=== PATIENT | female | born 1985 | race Caucasian/White ===

== ENCOUNTER 2023-06-08 17:37 | Observation (INO) | payer OTHER ==
--- NOTE | 2023-06-08 17:43 | ERPHSYRPT ---
- History of Present Illness Time Seen by Provider: 06/08/23 17:43 Source: patient, family Exam Limitations: no limitations Physician History: This is a 38-year-old white female patient who presents to the emergency department secondary to a phone call from her primary care physician, Dr. Rodriguez's office. Patient has been feeling weak over the last 2 to 3 months. She has been having heavy menstrual periods but denies bleeding from any other orifice. She has no known bleeding or clotting disorders. She has no known bone marrow diseases. She used to take meloxicam but has been several months since she has been on that medication. Patient's hemoglobin drawn at 215 today was 4.4. Patient arrives to the emergency department with a systolic blood pressure in the 140s. Her heart rate is in the 130s and it is sinus tachycardia. Patient's room air oxygenation is 100% and her respiratory rate is 17. There is no active bleeding. She has no chest pain. She denies abdominal pain. Severity: moderate Associated Symptoms: weakness, No nausea, No vomiting, No abdominal pain, No shortness of breath, No chest pain, No headaches Allergies/Adverse Reactions: Penicillins Allergy (Verified 06/08/23 17:42) Home Medications: No Reportable Medications [No Reported Medications] 06/08/23 [History] Travel Risk - International Travel Have you traveled outside of the country in past 3 weeks: No - Coronavirus Screening Are you exhibiting any of the following symptoms?: No Close contact with a COVID-19 positive Pt in past 14-21 Days: No - Review of Systems Constitutional: Weakness Eyes: No Symptoms Ears, Nose, & Throat: No Symptoms Respiratory: No Symptoms Cardiac: No Symptoms Abdominal/Gastrointestinal: No Symptoms Genitourinary Symptoms: No Symptoms Musculoskeletal: No Symptoms Skin: No Symptoms Neurological: No Symptoms Psychological: No Symptoms Endocrine: No Symptoms Hematologic/Lymphatic: No Symptoms Immunological/Allergic: No Symptoms All Other Systems: Reviewed and Negative - Past Medical History Pertinent Past Medical History: No - Past Surgical History Past Surgical History: Yes - Nursing Vital Signs Nursing Vital Signs: Initial Vital Signs Temperature 98.3 F 06/08/23 17:50 Pulse Rate 115 H 06/08/23 17:50 Respiratory Rate 18 06/08/23 17:50 Blood Pressure 144/70 06/08/23 17:50 O2 Sat by Pulse Oximetry 100 06/08/23 17:50 Pain Scale Pain Intensity 0 - Physical Exam General Appearance: no apparent distress, alert, anxiety Eye Exam: pale conjunctivae Ears, Nose, Throat Exam: dry mucous membranes Neck Exam: normal inspection, non-tender, supple, full range of motion Respiratory Exam: normal breath sounds, lungs clear, airway intact, No chest tenderness, No respiratory distress Cardiovascular Exam: tachycardia Gastrointestinal/Abdomen Exam: soft, normal bowel sounds, No tenderness Rectal Exam: not done Back Exam: normal inspection, normal range of motion, No CVA tenderness, No vertebral tenderness Extremity Exam: normal inspection, normal range of motion, pelvis stable Neurologic Exam: alert, oriented x 3, cooperative, sealer aircraft II-XII nml as tested, normal mood/affect, nml cerebellar function, nml station & gait, sensation nml Skin Exam: pale Lymphatic Exam: No adenopathy SpO2 Interpretation: normal O2 Delivery: Room Air - Course Nursing assessment & vital signs reviewed: Yes EKG Interpreted by Me: RATE (120), Sinus Tach, NORMAL AXIS, NORMAL INTERVALS, NORMAL QRS, NORMAL ST-T, Other (No acute ischemic changes on today's twelve-lead EKG.) Ordered Tests: Active Orders 24 hr Category Date Time Status IV Insertion STAT Care 06/08/23 17:57 Active IV Insertion-2nd Peripheral STAT Care 06/08/23 18:02 Active ABDOMEN AND PELVIS W/0 CONTRAS [CT] Stat Exams 06/08/23 17:57 Taken CBC W DIFF Stat Lab 06/08/23 17:45 Completed CMP Stat Lab 06/08/23 17:45 Completed HCG QUALITATIVE, SERUM Stat Lab 06/08/23 17:45 Results Occult Blood-Fecal Screen (Diagnostic) [OB-FECAL SCREEN Lab 06/08/23 17:45 Results ] Stat PROTIME WITH INR Stat Lab 06/08/23 17:45 Completed UA W/RFX UR CULTURE Stat Lab 06/08/23 19:14 Ordered Transfer Order Routine Transfer 06/08/23 Ordered Medication Summary Discontinued Medications Generic Name Dose Route Start Last Admin Trade Name Freq PRN Reason Stop Dose Admin Sodium Chloride 1,000 mls @ 999 mls/hr 06/08/23 17:57 06/08/23 18:23 Sodium Chloride 0.9% 1000 Ml IV 06/08/23 18:57 999 mls/hr .Q1H1M STA Administration Sodium Chloride Confirm 06/08/23 18:22 Sodium Chloride 0.9% 1000 Ml Administered 06/08/23 18:23 Dose 1,000 mls @ ud .ROUTE .STK-MED ONE Potassium Bicarbonate 50 meq 06/08/23 18:58 06/08/23 19:18 Potassium Bicarbonate 25 Meq Tab PO 06/08/23 18:59 50 meq STAT ONE Administration Potassium Bicarbonate Confirm 06/08/23 19:16 Potassium Bicarbonate 25 Meq Tab Administered 06/08/23 19:17 Dose 50 meq .ROUTE .STK-MED ONE Potassium Chloride 20 meq 06/08/23 18:45 06/08/23 18:54 Potassium Chloride Tab 10 Meq Tab PO 06/08/23 18:46 Not Given STAT ONE Potassium Chloride Confirm 06/08/23 18:50 Potassium Chloride Tab 10 Meq Tab Administered 06/08/23 18:51 Dose 20 meq PO .STK-MED ONE Lab/Rad Data: Laboratory Result Diagrams 06/08/23 17:45 06/08/23 17:45 Laboratory Results 06/08/23 06/08/23 06/08/23 Range/Units 17:45 17:45 17:45 WBC (4.0-10.5) x10^3/uL RBC (4.1-5.4) x10^6/uL Hgb (12.0-16.0) g/dL Hct (35-47) % MCV (78-100) fL MCH (26-32) pg MCHC (32-36) g/dL RDW (11.5-14.0) % Plt Count (150-450) x10^3/uL MPV (7.5-11.0) fL Gran % (36.0-66.0) % Immature Gran % (Auto) (0.00-0.4) % Nucleat RBC Rel Count (0.00-0.1) % Eos # (Auto) (0-0.5) x10^3/uL Immature Gran # (Auto) (0.00-0.03) x10^3u/L Absolute Lymphs (auto) (1.0-4.6) x10^3/uL Absolute Monos (auto) (0.0-1.3) x10^3/uL Absolute Nucleated RBC (0.00-0.01) x10^3u/L Lymphocytes % (24.0-44.0) % Monocytes % (0.0-12.0) % Eosinophils % (0.00-5.0) % Basophils % (0.0-0.4) % Absolute Granulocytes (1.4-6.9) x10^3/uL Basophils # (0-0.4) x10^3/uL PT 12.5 (9.4-12.5) SECONDS INR 1.16 (0.8-3.0) Sodium 140 (137-145) mmol/L Potassium 3.2 L (3.5-5.1) mmol/L Chloride 102 (98-107) mmol/L Carbon Dioxide 22 (22-30) mmol/L Anion Gap 19.4 H (5-15) MEQ/L BUN 4 L (7-17) mg/dL Creatinine 0.43 L (0.52-1.04) mg/dL Estimated GFR > 60.0 ML/MIN Glucose 130 H (74-106) mg/dL Calcium 8.6 (8.4-10.2) mg/dL Total Bilirubin 0.60 (0.2-1.3) mg/dL AST 17 (14-36) U/L ALT 11 (0-35) U/L Alkaline Phosphatase 58 (38-126) U/L Serum Total Protein 7.3 (6.3-8.2) g/dL Albumin 4.4 (3.5-5.0) g/dL Serum HCG, Qual NEGATIVE (NEGATIVE) Stl Occult Blood (IFOB) Pending 06/08/23 Range/Units 17:45 WBC 4.6 (4.0-10.5) x10^3/uL RBC 3.38 L (4.1-5.4) x10^6/uL Hgb 4.7 L* (12.0-16.0) g/dL Hct 20.4 L (35-47) % MCV 60.4 L (78-100) fL MCH 13.9 L (26-32) pg MCHC 23.0 L (32-36) g/dL RDW 22.6 H (11.5-14.0) % Plt Count 356 (150-450) x10^3/uL MPV 9.8 (7.5-11.0) fL Gran % 49.4 (36.0-66.0) % Immature Gran % (Auto) 0.6 H (0.00-0.4) % Nucleat RBC Rel Count 0.4 H (0.00-0.1) % Eos # (Auto) 0.13 (0-0.5) x10^3/uL Immature Gran # (Auto) 0.03 (0.00-0.03) x10^3u/L Absolute Lymphs (auto) 1.60 (1.0-4.6) x10^3/uL Absolute Monos (auto) 0.56 (0.0-1.3) x10^3/uL Absolute Nucleated RBC 0.02 H (0.00-0.01) x10^3u/L Lymphocytes % 34.5 (24.0-44.0) % Monocytes % 12.1 H (0.0-12.0) % Eosinophils % 2.8 (0.00-5.0) % Basophils % 0.6 (0.0-0.4) % Absolute Granulocytes 2.29 (1.4-6.9) x10^3/uL Basophils # 0.03 (0-0.4) x10^3/uL PT (9.4-12.5) SECONDS INR (0.8-3.0) Sodium (137-145) mmol/L Potassium (3.5-5.1) mmol/L Chloride (98-107) mmol/L Carbon Dioxide (22-30) mmol/L Anion Gap (5-15) MEQ/L BUN (7-17) mg/dL Creatinine (0.52-1.04) mg/dL Estimated GFR ML/MIN Glucose (74-106) mg/dL Calcium (8.4-10.2) mg/dL Total Bilirubin (0.2-1.3) mg/dL AST (14-36) U/L ALT (0-35) U/L Alkaline Phosphatase (38-126) U/L Serum Total Protein (6.3-8.2) g/dL Albumin (3.5-5.0) g/dL Serum HCG, Qual (NEGATIVE) Stl Occult Blood (IFOB) - Progress Progress: improved, re-examined Progress Note: 06/08/23 19:11 This patient's medical issue is 1 of moderate to high complexity. Level complexity in the work-up performed is based on the review of the patient's past medical history, review of the patient's medication list, review of the patient's drug allergy list, history of present illness and physical findings on examination. Work-up in this patient includes CT scan of the abdomen pelvis, placement of intravenous line, infusion of 1 L of normal saline solution, type and cross patient for 4 units packed red blood cells and transfused 2 units right away and keep 2 units on hold. We will order a PT INR. We will also order a CBC and a CMP. The CAT scan of the abdomen pelvis was interpreted by the radiologist. There are no acute intra-abdominal or intrapelvic findings on this noncontrasted CAT scan of the abdomen pelvis. This patient's work-up shows symptomatic anemia with a hemoglobin of 4.7. She presents with weakness and tachycardia. We will contact the telehospitalist for placement in observation into the hospital. 06/08/23 19:32 I spoke with telehospitalist Dr. Nieto. I reviewed the patient history, physical findings and laboratory data from the work-up that was performed. We are going to place the patient in observation and provide the patient with blood transfusions. We will repeat labs in the morning. Counseled pt/family regarding: lab results, diagnosis, rad results Medical Desision Making - Independent Historian Additional History obtained from: Spouse - Diagnostic Testing Diagnostic test were ordered, analyzed, and reviewed by me: Yes Radiological Interpretation: Reviewed by me, Teleradiologist Report - Risk of complications The pt has a high risk of morbidity or mortality based on: Decision regarding hospitilization or escalation of hosp level of care - Departure Departure Disposition: Home Clinical Impression: Symptomatic anemia, Tachycardia, Hypokalemia Condition: Fair Critical Care Time: Yes Critical Care Time(excluding separately billable procedures): Critical 30-74 mins (40 minutes) Referrals: DOCTOR,NO FAMILY [Primary Care Provider] - Follow up/PCP as directed
[2023-06-08] MEDS ORDERED: Sodium Chloride 0.9% 1000 ML 1,000 ML IV STA (17:57)
[2023-06-08 18:04] LABS: Absolute Neutrophil Ct (ANC) 2.29 x10^3/uL (1.4-6.9); BASOPHIL % 0.6 % (0.0-0.4); Basophil (Absolute #) 0.03 x10^3/uL (0-0.4); Eosinophil % 2.8 % (0.00-5.0); Eosinophil (Absolute #) 0.13 x10^3/uL (0-0.5); Hematocrit 20.4 % (35-47); IMMATURE GRAN # 0.03 x10^3u/L (0.00-0.03); IMMATURE GRAN % 0.6 % (0.00-0.4); Lymphocytes % 34.5 % (24.0-44.0); Mean Cell Volume 60.4 fL (78-100); Mean Corpuscular Hemoglobin 13.9 pg (26-32); Mean Platelet Volume 9.8 fL (7.5-11.0); Monocyte (Absolute #) 0.56 x10^3/uL (0.0-1.3); Monocytes % 12.1 % (0.0-12.0); NUCLEATED RBC # 0.02 x10^3u/L (0.00-0.01); NUCLEATED RBC % 0.4 % (0.00-0.1); Neutrophil % 49.4 % (36.0-66.0); Platelet Count 356 x10^3/uL (150-450); Red Blood Count 3.38 x10^6/uL (4.1-5.4); Red Cell Distribution Width 22.6 % (11.5-14.0); White Blood Count 4.6 x10^3/uL (4.0-10.5)
[2023-06-08 18:17] LABS: INR 1.16 (0.8-3.0); PROTIME 12.5 SECONDS (9.4-12.5)
[2023-06-08 18:22] LABS: HCG SERUM TEST NEGATIVE (NEGATIVE)
[2023-06-08] MEDS ORDERED: Sodium Chloride 0.9% 1000 ML 1,000 ML ONE (18:22)
[2023-06-08 18:25] LABS: ALBUMIN 4.4 g/dL (3.5-5.0); ALKALINE PHOSPHATASE 58 U/L (38-126); ANION GAP 19.4 MEQ/L (5-15); BLOOD UREA NITROGEN 4 mg/dL (7-17); CHLORIDE 102 mmol/L (98-107); Calcium 8.6 mg/dL (8.4-10.2); Carbon Dioxide 22 mmol/L (22-30); Creatinine 1 0.43 mg/dL (0.52-1.04); EST GLOMERULAR FILTRATION RATE > 60.0 ML/MIN; Glucose 130 mg/dL (74-106); Potassium 3.2 mmol/L (3.5-5.1); SGOT/AST 17 U/L (14-36); SGPT/ALT 11 U/L (0-35); SODIUM 140 mmol/L (137-145); Total Protein 7.3 g/dL (6.3-8.2)
[2023-06-08 18:36] LABS: Hemoglobin 4.7 g/dL (12.0-16.0)
[2023-06-08] MEDS ORDERED: Klor Con PO ONE (18:50)
[2023-06-08] MEDS: Klor Con PO ONE ×2 (18:51→18:54)
[2023-06-08] MEDS ORDERED: K-LYTE PO ONE (18:58)
[2023-06-08] MEDS ORDERED: K-LYTE ONE (19:16)
[2023-06-08] MEDS ORDERED: TYLENOL 325 MG PO PRN (19:48)
[2023-06-08] MEDS ORDERED: Zofran 4 MG/2 ML VIAL IV PRN (19:48)
[2023-06-08 20:02] LABS: Appearance Clear (Clear); Bacteria None Seen /HPF (None Seen); Bilirubin Negative (Negative); Blood Negative (Negative); Epithelial Cells Rare /HPF (None Seen); Glucose, Urine Negative (Negative); Hyaline Casts NONE SEEN /LPF (0-2); Ketones Negative (Negative); Leukocyte Esterase Negative (Negative); Nitrite Negative (Negative); Ph 6.5 (4.6-8.0); Protein,Urine Dip Negative (Negative); RBC 0-2 /HPF (0-5); Specific Gravity <=1.005 (1.005-1.030); Urobilinogen 0.2 mg/dL (0.2); WBC 0-2 /HPF (0-5)
[2023-06-08 20:05] LABS: ADD URINE CULTURE? NO (NO)
[2023-06-08 20:08] LABS: ABO TYPING A; RH TYPING POSITIVE
[2023-06-08 20:09] LABS: Antibody Screen NEGATIVE (NEGATIVE)
[2023-06-08 20:13] LABS: CROSS MATCH (PRBC) COMPATIBLE (COMPATIBLE)
--- NOTE | 2023-06-08 20:55 | PCM.HP ---
History of Present Illness - Chief Complaint Chief Complaint: abnormal labs History of Present Illness: is a 38 year old female with no past medical issue presented due to abnormal labs on her OP follow-up for low back pain (got hurt at work). She does report frequent menstrual periods, and at times heavy. Last menstrual cycle was 2 weeks ago. And she reports nothing else unusual. She denies rectal bleeding, melena, hematochezia. She denies nose bleeding. She has no previous issue with this degree of anemia. No recent procedure, surgery. In ER, her hgb was found to be 4.7. Plts and WBC are normal. She denies chest pain, SOB, CORTEZ, weakness, fatigue, dysuria, hematuria, loss of appetite, weight loss, malaise, night sweats - Review of Systems Constitutional: No Symptoms Eyes: No Symptoms Ears, Nose, & Throat: No Symptoms Respiratory: No Symptoms Cardiac: No Symptoms Abdominal/Gastrointestinal: No Symptoms Genitourinary Symptoms: No Symptoms Musculoskeletal: Back Pain Skin: No Symptoms Neurological: No Symptoms Psychological: No Symptoms Endocrine: No Symptoms Hematologic/Lymphatic: No Symptoms Immunological/Allergic: No Symptoms Medications & Allergies Home Medications: Home Medication List No Reportable Medications [No Reported Medications] 06/08/23 [History Confirmed 06/08/23] Allergies/Adverse Reactions: Allergies Allergy/AdvReac Type Severity Reaction Status Date / Time Penicillins Allergy Verified 06/08/23 17:42 - Past Medical History Past Medical History: No Neurological History: No Pertinent History ENT History: No Pertinent History Cardiac History: No Pertinent History Respiratory History: No Pertinent History Endocrine Medical History: No Pertinent History Musculoskelatal History: No Pertinent History GI Medical History: No Pertinent History History: No Pertinent History Pyscho-Social History: No Pertinent History Reproductive Disorders: No Pertinent History - Female History Hx Last Menstrual Period: may 25 Are you now?: No - Past Surgical History Past Surgical History: Yes Neuro Surgical History: No Pertinent History Cardiac History: No Pertinent History Respiratory Surgery: No Pertinent History GI Surgical History: No Pertinent History Genitourinary Surgical Hx: No Pertinent History Musculskeletal Surgical Hx: Orthopedic Surgery Female Surgical History: Tubal Ligation Other Surgical History: knee, fluid drained - Social History Smoking Status: Current every day smoker How long have you smoked: 19y Exposure to second hand smoke: Yes Alcohol: None, Rarely Drug Use: none Significant Family History: no pertinent family hx - Physical Exam Vital Signs: Vital Signs - 24 hr Temp Pulse Resp BP Pulse Ox 06/08/23 20:00 98 06/08/23 19:48 97.1 F 123 H 16 127/58 100 06/08/23 19:16 112 H 18 136/79 100 06/08/23 17:50 98.3 F 115 H 18 144/70 100 General Appearance: no apparent distress Neurologic Exam: alert, oriented x 3, cooperative Eye Exam: PERRL/EOMI, eyes nml inspection Ears, Nose, Throat Exam: normal ENT inspection Neck Exam: normal inspection, supple Respiratory Exam: normal breath sounds Cardiovascular Exam: regular rate/rhythm, normal heart sounds Gastrointestinal/Abdomen Exam: soft, normal bowel sounds Pelvic Exam: deferred Rectal Exam: deferred Back Exam: normal inspection Extremity Exam: normal inspection Skin Exam: normal color Results - Labs Lab/Micro Results: Lab Results-Last 24 Hours 06/08/23 06/08/23 06/08/23 Range/Units 17:45 17:45 17:45 WBC 4.6 (4.0-10.5) x10^3/uL RBC 3.38 L (4.1-5.4) x10^6/uL Hgb 4.7 L* (12.0-16.0) g/dL Hct 20.4 L (35-47) % MCV 60.4 L (78-100) fL MCH 13.9 L (26-32) pg MCHC 23.0 L (32-36) g/dL RDW 22.6 H (11.5-14.0) % Plt Count 356 (150-450) x10^3/uL MPV 9.8 (7.5-11.0) fL Gran % 49.4 (36.0-66.0) % Immature Gran % (Auto) 0.6 H (0.00-0.4) % Nucleat RBC Rel Count 0.4 H (0.00-0.1) % Eos # (Auto) 0.13 (0-0.5) x10^3/uL Immature Gran # (Auto) 0.03 (0.00-0.03) x10^3u/L Absolute Lymphs (auto) 1.60 (1.0-4.6) x10^3/uL Absolute Monos (auto) 0.56 (0.0-1.3) x10^3/uL Absolute Nucleated RBC 0.02 H (0.00-0.01) x10^3u/L Lymphocytes % 34.5 (24.0-44.0) % Monocytes % 12.1 H (0.0-12.0) % Eosinophils % 2.8 (0.00-5.0) % Basophils % 0.6 (0.0-0.4) % Absolute Granulocytes 2.29 (1.4-6.9) x10^3/uL Basophils # 0.03 (0-0.4) x10^3/uL PT 12.5 (9.4-12.5) SECONDS INR 1.16 (0.8-3.0) Sodium 140 (137-145) mmol/L Potassium 3.2 L (3.5-5.1) mmol/L Chloride 102 (98-107) mmol/L Carbon Dioxide 22 (22-30) mmol/L Anion Gap 19.4 H (5-15) MEQ/L BUN 4 L (7-17) mg/dL Creatinine 0.43 L (0.52-1.04) mg/dL Estimated GFR > 60.0 ML/MIN Glucose 130 H (74-106) mg/dL Calcium 8.6 (8.4-10.2) mg/dL Total Bilirubin 0.60 (0.2-1.3) mg/dL AST 17 (14-36) U/L ALT 11 (0-35) U/L Alkaline Phosphatase 58 (38-126) U/L Serum Total Protein 7.3 (6.3-8.2) g/dL Albumin 4.4 (3.5-5.0) g/dL Serum HCG, Qual (NEGATIVE) Urine Color (Yellow) Urine Appearance (Clear) Urine pH (4.6-8.0) Ur Specific Amorita (1.005-1.030) Urine Protein (Negative) Urine Glucose (UA) (Negative) mg/dL Urine Ketones (Negative) Urine Blood (Negative) Urine Nitrite (Negative) Urine Bilirubin (Negative) Urine Urobilinogen (0.2) mg/dL Ur Leukocyte Esterase (Negative) U Hyaline Cast (Auto) (0-2) /LPF Urine Microscopic RBC (0-5) /HPF Urine Microscopic WBC (0-5) /HPF Ur Epithelial Cells (None Seen) /HPF Urine Bacteria (None Seen) /HPF Urine Culture Reflexed (NO) Stl Occult Blood (IFOB) ABO Group Rh Factor Antibody Screen (NEGATIVE) Crossmatch (COMPATIBLE) 06/08/23 06/08/23 06/08/23 Range/Units 17:45 17:45 17:45 WBC (4.0-10.5) x10^3/uL RBC (4.1-5.4) x10^6/uL Hgb (12.0-16.0) g/dL Hct (35-47) % MCV (78-100) fL MCH (26-32) pg MCHC (32-36) g/dL RDW (11.5-14.0) % Plt Count (150-450) x10^3/uL MPV (7.5-11.0) fL Gran % (36.0-66.0) % Immature Gran % (Auto) (0.00-0.4) % Nucleat RBC Rel Count (0.00-0.1) % Eos # (Auto) (0-0.5) x10^3/uL Immature Gran # (Auto) (0.00-0.03) x10^3u/L Absolute Lymphs (auto) (1.0-4.6) x10^3/uL Absolute Monos (auto) (0.0-1.3) x10^3/uL Absolute Nucleated RBC (0.00-0.01) x10^3u/L Lymphocytes % (24.0-44.0) % Monocytes % (0.0-12.0) % Eosinophils % (0.00-5.0) % Basophils % (0.0-0.4) % Absolute Granulocytes (1.4-6.9) x10^3/uL Basophils # (0-0.4) x10^3/uL PT (9.4-12.5) SECONDS INR (0.8-3.0) Sodium (137-145) mmol/L Potassium (3.5-5.1) mmol/L Chloride (98-107) mmol/L Carbon Dioxide (22-30) mmol/L Anion Gap (5-15) MEQ/L BUN (7-17) mg/dL Creatinine (0.52-1.04) mg/dL Estimated GFR ML/MIN Glucose (74-106) mg/dL Calcium (8.4-10.2) mg/dL Total Bilirubin (0.2-1.3) mg/dL AST (14-36) U/L ALT (0-35) U/L Alkaline Phosphatase (38-126) U/L Serum Total Protein (6.3-8.2) g/dL Albumin (3.5-5.0) g/dL Serum HCG, Qual NEGATIVE (NEGATIVE) Urine Color (Yellow) Urine Appearance (Clear) Urine pH (4.6-8.0) Ur Specific Amorita (1.005-1.030) Urine Protein (Negative) Urine Glucose (UA) (Negative) mg/dL Urine Ketones (Negative) Urine Blood (Negative) Urine Nitrite (Negative) Urine Bilirubin (Negative) Urine Urobilinogen (0.2) mg/dL Ur Leukocyte Esterase (Negative) U Hyaline Cast (Auto) (0-2) /LPF Urine Microscopic RBC (0-5) /HPF Urine Microscopic WBC (0-5) /HPF Ur Epithelial Cells (None Seen) /HPF Urine Bacteria (None Seen) /HPF Urine Culture Reflexed (NO) Stl Occult Blood (IFOB) Pending ABO Group A Rh Factor POSITIVE Antibody Screen NEGATIVE (NEGATIVE) Crossmatch COMPATIBLE COMPATIBLE (COMPATIBLE) 06/08/23 06/08/23 06/08/23 Range/Units 17:45 17:45 19:14 WBC (4.0-10.5) x10^3/uL RBC (4.1-5.4) x10^6/uL Hgb (12.0-16.0) g/dL Hct (35-47) % MCV (78-100) fL MCH (26-32) pg MCHC (32-36) g/dL RDW (11.5-14.0) % Plt Count (150-450) x10^3/uL MPV (7.5-11.0) fL Gran % (36.0-66.0) % Immature Gran % (Auto) (0.00-0.4) % Nucleat RBC Rel Count (0.00-0.1) % Eos # (Auto) (0-0.5) x10^3/uL Immature Gran # (Auto) (0.00-0.03) x10^3u/L Absolute Lymphs (auto) (1.0-4.6) x10^3/uL Absolute Monos (auto) (0.0-1.3) x10^3/uL Absolute Nucleated RBC (0.00-0.01) x10^3u/L Lymphocytes % (24.0-44.0) % Monocytes % (0.0-12.0) % Eosinophils % (0.00-5.0) % Basophils % (0.0-0.4) % Absolute Granulocytes (1.4-6.9) x10^3/uL Basophils # (0-0.4) x10^3/uL PT (9.4-12.5) SECONDS INR (0.8-3.0) Sodium (137-145) mmol/L Potassium (3.5-5.1) mmol/L Chloride (98-107) mmol/L Carbon Dioxide (22-30) mmol/L Anion Gap (5-15) MEQ/L BUN (7-17) mg/dL Creatinine (0.52-1.04) mg/dL Estimated GFR ML/MIN Glucose (74-106) mg/dL Calcium (8.4-10.2) mg/dL Total Bilirubin (0.2-1.3) mg/dL AST (14-36) U/L ALT (0-35) U/L Alkaline Phosphatase (38-126) U/L Serum Total Protein (6.3-8.2) g/dL Albumin (3.5-5.0) g/dL Serum HCG, Qual (NEGATIVE) Urine Color Yellow (Yellow) Urine Appearance Clear (Clear) Urine pH 6.5 (4.6-8.0) Ur Specific Amorita <=1.005 (1.005-1.030) Urine Protein Negative (Negative) Urine Glucose (UA) Negative (Negative) mg/dL Urine Ketones Negative (Negative) Urine Blood Negative (Negative) Urine Nitrite Negative (Negative) Urine Bilirubin Negative (Negative) Urine Urobilinogen 0.2 (0.2) mg/dL Ur Leukocyte Esterase Negative (Negative) U Hyaline Cast (Auto) NONE SEEN (0-2) /LPF Urine Microscopic RBC 0-2 (0-5) /HPF Urine Microscopic WBC 0-2 (0-5) /HPF Ur Epithelial Cells Rare (None Seen) /HPF Urine Bacteria None Seen (None Seen) /HPF Urine Culture Reflexed NO (NO) Stl Occult Blood (IFOB) ABO Group Rh Factor Antibody Screen (NEGATIVE) Crossmatch COMPATIBLE COMPATIBLE (COMPATIBLE) - Radiology Impressions Radiology Exams & Impressions: Radiology Procedures Category Date Time Status ABDOMEN AND PELVIS W/0 CONTRAS [CT] Stat Exams 06/08/23 17:57 Taken - Other Procedures and Tests Respiratory Therapy 06/08/23 20:17 Smoking Cessation Education ONCE Assessment/Plan (1) Symptomatic anemia Current Visit: Yes Status: Acute Assessment & Plan: Hgb 4.7 - only explanation are her frequent and often times heavy menstrual periods. CT abd negative. She denies rectal bleeding. We can check stool occult to be complete. Looks like anemia from blood loss. She will get 4 units of pRBC. We will recheck CBC in AM. ER sent iron studies and stool guaiac. She is hemodynamically stable. I suspect this is at least subacute anemia given how stable and asymptomatic she is Code(s): D64.9 - ANEMIA, UNSPECIFIED (2) Hypokalemia Current Visit: Yes Status: Acute Assessment & Plan: K is 3.2 - denies nausea, vomiting, and not on diuretic at home. ER gave her 40 meq of KCL. Will recheck in AM Code(s): E87.6 - HYPOKALEMIA (3) Tachycardia Current Visit: Yes Status: Acute Assessment & Plan: Likely in response to her severe anemia. Again, she is mainly asymptomatic and will replace her blood with pRBC and monitor Code(s): R00.0 - TACHYCARDIA, UNSPECIFIED Telemedicine Encounter - Telemedicine Encounter Telemedicine Encounter: The entirety of this encounter was performed via Telemedicine" The pt gave me verbal consent to have this telemedicine visit
[2023-06-08] MEDS ORDERED: Sodium Chloride 0.9% 500 ML 500 ML IV ONE (22:48)
[2023-06-09] MEDS ORDERED: Sodium Chloride 0.9% 500 ML 500 ML IV ONE (00:45)
[2023-06-09 05:32] LABS: Hematocrit 30.9 % (35-47); Hemoglobin 8.7 g/dL (12.0-16.0); Mean Cell Volume 71.4 fL (78-100); Mean Corpuscular Hemoglobin 20.1 pg (26-32); Mean Corpuscular Hgb Concent. 28.2 g/dL (32-36); Mean Platelet Volume 9.3 fL (7.5-11.0); Platelet Count 277 x10^3/uL (150-450); Red Blood Count 4.33 x10^6/uL (4.1-5.4); Red Cell Distribution Width 26.8 % (11.5-14.0); White Blood Count 4.8 x10^3/uL (4.0-10.5)
[2023-06-09 05:58] LABS: CHLORIDE 107 mmol/L (98-107); Calcium 8.4 mg/dL (8.4-10.2); Carbon Dioxide 23 mmol/L (22-30); Creatinine 1 0.39 mg/dL (0.52-1.04); EST GLOMERULAR FILTRATION RATE > 60.0 ML/MIN; Glucose 96 mg/dL (74-106); Potassium 3.8 mmol/L (3.5-5.1); SODIUM 140 mmol/L (137-145)
[2023-06-09 06:02] LABS: BLOOD UREA NITROGEN < 2 mg/dL (7-17)
[2023-06-09 06:43] VITALS: BP 126/71; PULSE 71; RESP 16; TEMP 97.5; O2SAT 98
[2023-06-09 07:20] LABS: Slide Review YES
--- NOTE | 2023-06-09 08:37 | PCM.DS ---
Discharge Summary Date of Admission: 06/08/23 19:46 Date of Discharge: 06/09/23 Admitting Physician: CHRISTA PASCAL DO Primary Care Provider: NO FAMILY DOCTOR Allergies Allergies Penicillins Allergy (Verified 06/08/23 17:42) Hospital Summary - Hospital Course Hospital Course: is a 38 year old female with no past medical issue presented due to abnormal labs on her OP follow-up for low back pain (got hurt at work). She does report frequent menstrual periods, and at times heavy. Last menstrual cycle was 2 weeks ago. And she reports nothing else unusual. She went to her PCP ( Dr. Durand) yesterday for heavy menstrual cycles and was placed on control. She has not yet started this. She denies rectal bleeding, melena, hematochezia. She denies nose bleeding. She has no previous issue with this degree of anemia. No recent procedure, surgery. In ER, her hgb was found to be 4.7. Plts and WBC are normal. She denies chest pain, SOB, CORTEZ, weakness, fatigue, dysuria, hematuria, loss of appetite, weight loss, malaise, night sweats. Overnight she received 4 units of PRBC. Today HGB is 8.7 She is no longer tachycardic. She is wanting to go home today. She feels much better. Discussed f/u with scheduling coordinator and she would like to star the control and f/u with her PCP next week. She explained if he feels she needs scheduling coordinator at a later date she would be willing. She denies and further concerns at this time. - Vitals & Intake/Output Vital Signs: Vital Signs Temperature 97.5 F 06/09/23 06:43 Pulse Rate 71 06/09/23 06:43 Respiratory Rate 16 06/09/23 06:43 Blood Pressure 126/71 06/09/23 06:43 O2 Sat by Pulse Oximetry 98 06/09/23 06:43 Intake & Output: Intake & Output 06/06/23 06/07/23 06/08/23 06/09/23 11:59 11:59 11:59 11:59 Intake Total 300 Balance 300 Weight 53.1 kg - Lab Result Diagrams: 06/09/23 05:22 06/09/23 05:22 Lab Results-Last 24 Hrs: Lab Results-Last 24 Hours 06/08/23 06/08/23 06/08/23 Range/Units 17:45 17:45 17:45 WBC 4.6 (4.0-10.5) x10^3/uL RBC 3.38 L (4.1-5.4) x10^6/uL Hgb 4.7 L* (12.0-16.0) g/dL Hct 20.4 L (35-47) % MCV 60.4 L (78-100) fL MCH 13.9 L (26-32) pg MCHC 23.0 L (32-36) g/dL RDW 22.6 H (11.5-14.0) % Plt Count 356 (150-450) x10^3/uL MPV 9.8 (7.5-11.0) fL Gran % 49.4 (36.0-66.0) % Immature Gran % (Auto) 0.6 H (0.00-0.4) % Nucleat RBC Rel Count 0.4 H (0.00-0.1) % Eos # (Auto) 0.13 (0-0.5) x10^3/uL Immature Gran # (Auto) 0.03 (0.00-0.03) x10^3u/L Absolute Lymphs (auto) 1.60 (1.0-4.6) x10^3/uL Absolute Monos (auto) 0.56 (0.0-1.3) x10^3/uL Absolute Nucleated RBC 0.02 H (0.00-0.01) x10^3u/L Lymphocytes % 34.5 (24.0-44.0) % Monocytes % 12.1 H (0.0-12.0) % Eosinophils % 2.8 (0.00-5.0) % Basophils % 0.6 (0.0-0.4) % Absolute Granulocytes 2.29 (1.4-6.9) x10^3/uL Basophils # 0.03 (0-0.4) x10^3/uL PT 12.5 (9.4-12.5) SECONDS INR 1.16 (0.8-3.0) Sodium 140 (137-145) mmol/L Potassium 3.2 L (3.5-5.1) mmol/L Chloride 102 (98-107) mmol/L Carbon Dioxide 22 (22-30) mmol/L Anion Gap 19.4 H (5-15) MEQ/L BUN 4 L (7-17) mg/dL Creatinine 0.43 L (0.52-1.04) mg/dL Estimated GFR > 60.0 ML/MIN Glucose 130 H (74-106) mg/dL Calcium 8.6 (8.4-10.2) mg/dL Total Bilirubin 0.60 (0.2-1.3) mg/dL AST 17 (14-36) U/L ALT 11 (0-35) U/L Alkaline Phosphatase 58 (38-126) U/L Serum Total Protein 7.3 (6.3-8.2) g/dL Albumin 4.4 (3.5-5.0) g/dL Serum HCG, Qual (NEGATIVE) Urine Color (Yellow) Urine Appearance (Clear) Urine pH (4.6-8.0) Ur Specific Bledsoe (1.005-1.030) Urine Protein (Negative) Urine Glucose (UA) (Negative) mg/dL Urine Ketones (Negative) Urine Blood (Negative) Urine Nitrite (Negative) Urine Bilirubin (Negative) Urine Urobilinogen (0.2) mg/dL Ur Leukocyte Esterase (Negative) U Hyaline Cast (Auto) (0-2) /LPF Urine Microscopic RBC (0-5) /HPF Urine Microscopic WBC (0-5) /HPF Ur Epithelial Cells (None Seen) /HPF Urine Bacteria (None Seen) /HPF Urine Culture Reflexed (NO) Stl Occult Blood (IFOB) Slides for Path Review ABO Group Rh Factor Antibody Screen (NEGATIVE) Crossmatch (COMPATIBLE) 06/08/23 06/08/23 06/08/23 Range/Units 17:45 17:45 17:45 WBC (4.0-10.5) x10^3/uL RBC (4.1-5.4) x10^6/uL Hgb (12.0-16.0) g/dL Hct (35-47) % MCV (78-100) fL MCH (26-32) pg MCHC (32-36) g/dL RDW (11.5-14.0) % Plt Count (150-450) x10^3/uL MPV (7.5-11.0) fL Gran % (36.0-66.0) % Immature Gran % (Auto) (0.00-0.4) % Nucleat RBC Rel Count (0.00-0.1) % Eos # (Auto) (0-0.5) x10^3/uL Immature Gran # (Auto) (0.00-0.03) x10^3u/L Absolute Lymphs (auto) (1.0-4.6) x10^3/uL Absolute Monos (auto) (0.0-1.3) x10^3/uL Absolute Nucleated RBC (0.00-0.01) x10^3u/L Lymphocytes % (24.0-44.0) % Monocytes % (0.0-12.0) % Eosinophils % (0.00-5.0) % Basophils % (0.0-0.4) % Absolute Granulocytes (1.4-6.9) x10^3/uL Basophils # (0-0.4) x10^3/uL PT (9.4-12.5) SECONDS INR (0.8-3.0) Sodium (137-145) mmol/L Potassium (3.5-5.1) mmol/L Chloride (98-107) mmol/L Carbon Dioxide (22-30) mmol/L Anion Gap (5-15) MEQ/L BUN (7-17) mg/dL Creatinine (0.52-1.04) mg/dL Estimated GFR ML/MIN Glucose (74-106) mg/dL Calcium (8.4-10.2) mg/dL Total Bilirubin (0.2-1.3) mg/dL AST (14-36) U/L ALT (0-35) U/L Alkaline Phosphatase (38-126) U/L Serum Total Protein (6.3-8.2) g/dL Albumin (3.5-5.0) g/dL Serum HCG, Qual NEGATIVE (NEGATIVE) Urine Color (Yellow) Urine Appearance (Clear) Urine pH (4.6-8.0) Ur Specific Bledsoe (1.005-1.030) Urine Protein (Negative) Urine Glucose (UA) (Negative) mg/dL Urine Ketones (Negative) Urine Blood (Negative) Urine Nitrite (Negative) Urine Bilirubin (Negative) Urine Urobilinogen (0.2) mg/dL Ur Leukocyte Esterase (Negative) U Hyaline Cast (Auto) (0-2) /LPF Urine Microscopic RBC (0-5) /HPF Urine Microscopic WBC (0-5) /HPF Ur Epithelial Cells (None Seen) /HPF Urine Bacteria (None Seen) /HPF Urine Culture Reflexed (NO) Stl Occult Blood (IFOB) Pending Slides for Path Review ABO Group A Rh Factor POSITIVE Antibody Screen NEGATIVE (NEGATIVE) Crossmatch COMPATIBLE COMPATIBLE (COMPATIBLE) 06/08/23 06/08/23 06/08/23 Range/Units 17:45 17:45 19:14 WBC (4.0-10.5) x10^3/uL RBC (4.1-5.4) x10^6/uL Hgb (12.0-16.0) g/dL Hct (35-47) % MCV (78-100) fL MCH (26-32) pg MCHC (32-36) g/dL RDW (11.5-14.0) % Plt Count (150-450) x10^3/uL MPV (7.5-11.0) fL Gran % (36.0-66.0) % Immature Gran % (Auto) (0.00-0.4) % Nucleat RBC Rel Count (0.00-0.1) % Eos # (Auto) (0-0.5) x10^3/uL Immature Gran # (Auto) (0.00-0.03) x10^3u/L Absolute Lymphs (auto) (1.0-4.6) x10^3/uL Absolute Monos (auto) (0.0-1.3) x10^3/uL Absolute Nucleated RBC (0.00-0.01) x10^3u/L Lymphocytes % (24.0-44.0) % Monocytes % (0.0-12.0) % Eosinophils % (0.00-5.0) % Basophils % (0.0-0.4) % Absolute Granulocytes (1.4-6.9) x10^3/uL Basophils # (0-0.4) x10^3/uL PT (9.4-12.5) SECONDS INR (0.8-3.0) Sodium (137-145) mmol/L Potassium (3.5-5.1) mmol/L Chloride (98-107) mmol/L Carbon Dioxide (22-30) mmol/L Anion Gap (5-15) MEQ/L BUN (7-17) mg/dL Creatinine (0.52-1.04) mg/dL Estimated GFR ML/MIN Glucose (74-106) mg/dL Calcium (8.4-10.2) mg/dL Total Bilirubin (0.2-1.3) mg/dL AST (14-36) U/L ALT (0-35) U/L Alkaline Phosphatase (38-126) U/L Serum Total Protein (6.3-8.2) g/dL Albumin (3.5-5.0) g/dL Serum HCG, Qual (NEGATIVE) Urine Color Yellow (Yellow) Urine Appearance Clear (Clear) Urine pH 6.5 (4.6-8.0) Ur Specific Bledsoe <=1.005 (1.005-1.030) Urine Protein Negative (Negative) Urine Glucose (UA) Negative (Negative) mg/dL Urine Ketones Negative (Negative) Urine Blood Negative (Negative) Urine Nitrite Negative (Negative) Urine Bilirubin Negative (Negative) Urine Urobilinogen 0.2 (0.2) mg/dL Ur Leukocyte Esterase Negative (Negative) U Hyaline Cast (Auto) NONE SEEN (0-2) /LPF Urine Microscopic RBC 0-2 (0-5) /HPF Urine Microscopic WBC 0-2 (0-5) /HPF Ur Epithelial Cells Rare (None Seen) /HPF Urine Bacteria None Seen (None Seen) /HPF Urine Culture Reflexed NO (NO) Stl Occult Blood (IFOB) Slides for Path Review ABO Group Rh Factor Antibody Screen (NEGATIVE) Crossmatch COMPATIBLE COMPATIBLE (COMPATIBLE) 06/09/23 06/09/23 Range/Units 05:22 05:22 WBC 4.8 (4.0-10.5) x10^3/uL RBC 4.33 (4.1-5.4) x10^6/uL Hgb 8.7 L D (12.0-16.0) g/dL Hct 30.9 L (35-47) % MCV 71.4 L D (78-100) fL MCH 20.1 L (26-32) pg MCHC 28.2 L (32-36) g/dL RDW 26.8 H (11.5-14.0) % Plt Count 277 (150-450) x10^3/uL MPV 9.3 (7.5-11.0) fL Gran % (36.0-66.0) % Immature Gran % (Auto) (0.00-0.4) % Nucleat RBC Rel Count (0.00-0.1) % Eos # (Auto) (0-0.5) x10^3/uL Immature Gran # (Auto) (0.00-0.03) x10^3u/L Absolute Lymphs (auto) (1.0-4.6) x10^3/uL Absolute Monos (auto) (0.0-1.3) x10^3/uL Absolute Nucleated RBC (0.00-0.01) x10^3u/L Lymphocytes % (24.0-44.0) % Monocytes % (0.0-12.0) % Eosinophils % (0.00-5.0) % Basophils % (0.0-0.4) % Absolute Granulocytes (1.4-6.9) x10^3/uL Basophils # (0-0.4) x10^3/uL PT (9.4-12.5) SECONDS INR (0.8-3.0) Sodium 140 (137-145) mmol/L Potassium 3.8 (3.5-5.1) mmol/L Chloride 107 (98-107) mmol/L Carbon Dioxide 23 (22-30) mmol/L Anion Gap 13.0 (5-15) MEQ/L BUN < 2 L (7-17) mg/dL Creatinine 0.39 L (0.52-1.04) mg/dL Estimated GFR > 60.0 ML/MIN Glucose 96 (74-106) mg/dL Calcium 8.4 (8.4-10.2) mg/dL Total Bilirubin (0.2-1.3) mg/dL AST (14-36) U/L ALT (0-35) U/L Alkaline Phosphatase (38-126) U/L Serum Total Protein (6.3-8.2) g/dL Albumin (3.5-5.0) g/dL Serum HCG, Qual (NEGATIVE) Urine Color (Yellow) Urine Appearance (Clear) Urine pH (4.6-8.0) Ur Specific Bledsoe (1.005-1.030) Urine Protein (Negative) Urine Glucose (UA) (Negative) mg/dL Urine Ketones (Negative) Urine Blood (Negative) Urine Nitrite (Negative) Urine Bilirubin (Negative) Urine Urobilinogen (0.2) mg/dL Ur Leukocyte Esterase (Negative) U Hyaline Cast (Auto) (0-2) /LPF Urine Microscopic RBC (0-5) /HPF Urine Microscopic WBC (0-5) /HPF Ur Epithelial Cells (None Seen) /HPF Urine Bacteria (None Seen) /HPF Urine Culture Reflexed (NO) Stl Occult Blood (IFOB) Slides for Path Review YES ABO Group Rh Factor Antibody Screen (NEGATIVE) Crossmatch (COMPATIBLE) - Radiology Exams Ordered Rad Exams-Entire Visit: Radiology Procedures Category Date Time Status ABDOMEN AND PELVIS W/0 CONTRAS [CT] Stat Exams 06/08/23 17:57 Taken - Procedures and Test Procedures and Tests throughout Hospitalization: Therapy Orders & Screens 06/08/23 20:17 Smoking Cessation Education ONCE Comment: Diagnosis: abnormal labs Smoking Status: Current every day smoker How long have you smoked: 19y Have you smoked in the past 12 months: Yes Approximately how many cigarettes per day: 2-3 Do you dip or chew tobacco: No Discharge Exam General Appearance: no apparent distress, alert Neurologic Exam: alert, oriented x 3, cooperative, normal mood/affect, nml cerebellar function, sensation nml, No motor deficits Eye Exam: PERRL, EOMI, eyes nml inspection Ears, Nose, Throat Exam: normal ENT inspection, pharynx normal, moist mucous membranes Neck Exam: normal inspection, non-tender, supple, full range of motion Respiratory Exam: normal breath sounds, lungs clear, No respiratory distress Cardiovascular Exam: regular rate/rhythm, normal heart sounds Gastrointestinal/Abdomen Exam: soft, No tenderness, No mass Pelvic Exam: deferred Rectal Exam: deferred Back Exam: normal inspection, normal range of motion, No CVA tenderness, No vertebral tenderness Extremity Exam: normal inspection, normal range of motion Skin Exam: normal color, warm, dry Final Diagnosis/Problem List - Final Discharge Diagnosis/Problem (1) Symptomatic anemia Current Visit: Yes Status: Acute Assessment & Plan: Hgb 4.7 on admission- only explanation are her frequent and often times heavy menstrual periods. -CT abd negative. -She denies rectal bleeding. We can check stool occult to be complete. - Looks like anemia from blood loss. -4 units of PRBC- - ER sent iron studies and stool guaiac- pending- f/u with PCP with results - She is hemodynamically stable. - I suspect this is at least subacute anemia given how stable and asymptomatic she is. - refused OP DELIVERY REP f/u - continue control as prescribed by PCP - will start OP oral iron- side effects discussed Code(s): D64.9 - ANEMIA, UNSPECIFIED (2) Heavy menses Current Visit: Yes Status: Acute Assessment & Plan: - Start control as prescribed by PCP - Oral iron rx sent in - Consider DELIVERY REP referral Code(s): N92.0 - EXCESSIVE AND FREQUENT MENSTRUATION WITH REGULAR CYCLE (3) Hypokalemia Current Visit: Yes Status: Acute Assessment & Plan: - 06/08/23 K+3.2- replaced - 06/09/23 K+ 3.8- resolved - will need rechecked OP Code(s): E87.6 - HYPOKALEMIA (4) Tachycardia Current Visit: Yes Status: Acute Assessment & Plan: - on admission - resolved Code(s): R00.0 - TACHYCARDIA, UNSPECIFIED - Discharge Discharge Date: 06/09/23 Condition: Stable Prescriptions: No Action No Reportable Medications [No Reported Medications] Instructions: Heavy Periods (DC), Ferrous Sulfate, Anemia Caused by Low Iron, Adult (DC), Good Food Sources of Iron Follow up with: ELIZABETH DURAND MD [ACTIVE STAFF] - 06/16/23 11:00 am
--- NOTE | 2023-06-09 08:46 | XRAY ---
Indication: Severe menstrual bleeding. Anemia. Multiple contiguous axial images obtained through the abdomen and pelvis without contrast. Comparison: None Lung bases demonstrates minimal right base fibrosis/scarring and 3 mm left costophrenic angle well-circumscribed noncalcified granuloma probably granulomatous. No infiltrate or effusion. Heart is not enlarged. Noncontrasted stomach and bowel loops appear nonobstructed with normal appendix. No free fluid/air. Remaining liver, gallbladder, pancreas, spleen, adrenal glands, kidneys, ureters, bladder, uterus, and aorta are unremarkable for noncontrast exam. Osseous structures intact. No ventral inguinal hernias. Impression: Left costophrenic angle noncalcified micronodule probably granulomatous. Remaining CT abdomen/pelvis without contrast exam is negative.
[2023-06-09] MEDS ORDERED: Protonix 40MG Tablet PO SCH (10:00)
== END 2023-06-09 09:52 | disposition home or self-care (01) ==
LOC: ED 17:37 → MED SURG 19:46
PROVIDERS: ADMIT Internal Medicine; ATTEND Internal Medicine
DX: D64.9 Anemia, unspecified (principal); N92.0 Excessive and frequent menstruation with regular cycle; E87.6 Hypokalemia; R00.0 Tachycardia, unspecified; Z20.828 Contact with and (suspected) exposure to other viral communicable diseases; Z72.0 Tobacco use
CPT/HCPCS: 36000; 36415; 36430; 74176; 80048; 80053; 81001; 84703; 85025; 85027; 85610; 86850; 86900; 86901; 86922; 93268; 94762; 99284; 99291; G0378; P9016; 82274; A9270-GY; G0328